=== PATIENT | male | born 2000 | race Caucasian/White ===

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

== ENCOUNTER → 2022-02-03 | Outpatient (CLI) | payer BC, OTHER | LOC: EXRD 07:49 | DX: I10 Essential (primary) hypertension (principal) | CPT/HCPCS: 93975 ==